=== PATIENT | male | born 2000 | race Caucasian/White ===

== ENCOUNTER 2019-02-27 20:39 | Emergency (ER) | payer OTHER ==
[~2019-02-27] VITALS: Ht 182.9 cm; Wt 90.9 kg
[2019-02-27 21:41] VITALS: BP 136/82; PULSE 98; TEMP 98.2
== END 2019-02-27 21:50 | disposition home or self-care (01) ==
LOC: COL.ER 20:39
DX: J36 Peritonsillar abscess (principal)
CPT/HCPCS: J1100